=== PATIENT | female | born 1990 | race Caucasian/White ===

== ENCOUNTER 2018-08-06 06:19 | Inpatient (IN) | payer MEDICAID ==
[2018-08-06] MEDS ORDERED: LACTATED RINGER'S 1,000 ML IV (06:29)
[2018-08-06] MEDS ORDERED: OXYCODONE/ACETAMINOPHEN (5/325) TAB PO (06:30)
[2018-08-06] MEDS ORDERED: MISOPROSTOL 200 MCG TAB PR ×2 (06:30→08:30)
[2018-08-06] MEDS ORDERED: METHYLERGONOVINE 0.2 MG INJ IM ×2 (06:30→08:30)
[2018-08-06] MEDS ORDERED: CARBOPROST 250 MCG INJ IM ×2 (06:30→08:30)
[2018-08-06] MEDS ORDERED: OXYTOCIN 30 UNITS/LR 500 ML IV ×2 (06:30→08:30)
[2018-08-06] MEDS ORDERED: BUTORPHANOL 2 MG INJ IV (06:30)
[2018-08-06 06:46] LABS: ADD MAN DIFF? NO
[2018-08-06] MEDS ORDERED: LIDOCAINE 0.5% (SDV) 50 ML INJ (06:48)
[2018-08-06 06:50] LABS: WHITE BLOOD COUNT 11.2 10^3/ul (4.8-10.8)
[2018-08-06 06:50] LABS: BASOPHILS % 0.4 % (0.0-2.0); EOSINOPHILS # 0.2 10^3/ul (0.0-0.5); EOSINOPHILS % 1.3 % (0.0-7.0); HEMATOCRIT 42.3 % (37.0-47.0); HEMOGLOBIN 14.1 g/dl (12.0-16.0); LYMPHOCYTES % 26.4 % (15.0-51.0); MEAN CORPUSCULAR HEMOGLOBIN 29.6 pg (29.0-33.0); MEAN CORPUSCULAR HGB CONC 33.3 g/dl (32.0-37.0); MEAN CORPUSCULAR VOLUME 88.9 fl (82.0-101.0); MEAN PLATELET VOLUME 11.6 fl (7.4-10.4); MONOCYTE # 0.6 10^3/ul (0.3-0.9); MONOCYTES % 5.4 % (0.0-11.0); NEUTROPHIL # 7.4 10^3/ul (1.6-7.5); PLATELET COUNT 242 10^3/UL (140-415); RED BLOOD COUNT 4.76 10^6/ul (4.20-5.40); RED CELL DISTRIBUTION WIDTH 14.6 % (11.5-14.5)
[2018-08-06 07:09] LABS: INR 0.82; PROTIME 11.4 Sec (11.9-14.9); PT RATIO 0.9
[2018-08-06 07:10] LABS: PARTIAL THROMBOPLASTIN TIME 26.9 Sec (23.0-35.0)
[2018-08-06] MEDS: IBUPROFEN 600 MG TAB PO ×4 (07:35→23:48)
[2018-08-06] MEDS: OXYTOCIN 30 UNITS/LR 500 ML IV ×2 (07:36→07:39)
[2018-08-06] MEDS: LACTATED RINGER'S 1,000 ML IV* ×3 (07:41→16:29)
[2018-08-06] MEDS: LIDOCAINE 1% (MPF) 30 ML INJ INJ (07:42)
[2018-08-06 07:54] LABS: HEPATITIS B SURFACE ANTIGEN NEGATIVE (NEGATIVE)
[2018-08-06] MEDS ORDERED: HYDROCODONE/APAP (5/325) TAB PO (08:30)
[2018-08-06] MEDS ORDERED: ZOLPIDEM 5 MG TAB PO (08:30)
[2018-08-06] MEDS ORDERED: DIBUCAINE 1% 30 GM OINT TOP (08:30)
[2018-08-06] MEDS: AMPICILLIN 2 GM/NS (PMX) 100 ML IV (08:45)
[2018-08-06] MEDS: SENNA/DOCUSATE NA (8.6MG/50MG) TAB PO ×2 (09:00→21:53)
[2018-08-06] MEDS: MAGNESIUM HYDROXIDE 30ML CUP PO ×2 (09:00→21:53)
[2018-08-06] MEDS ORDERED: AMPICILLIN 1 GM/NS (PMX) 50 ML IV (10:30)
[2018-08-06] MEDS: LANOLIN 7 GM TUBE TOP (12:33)
[2018-08-06] MEDS: WITCH HAZEL/GLYCERIN PAD PR (12:34)
[2018-08-06] MEDS: BENZOCAINE 20% 56 ML SPRAY TOP (12:34)
[2018-08-06 15:01] LABS: RAPID PLASMA REAGIN NONREACTIVE (NR)
[2018-08-07] MEDS: LACTATED RINGER'S 1,000 ML IV* ×3 (00:29→15:04)
[2018-08-07] MEDS: IBUPROFEN 600 MG TAB PO (05:59)
[2018-08-07 07:09] LABS: ADD MAN DIFF? NO
[2018-08-07 07:14] LABS: WHITE BLOOD COUNT 10.4 10^3/ul (4.8-10.8)
[2018-08-07 07:14] LABS: BASOPHIL # 0.1 10^3/ul (0.0-0.1); BASOPHILS % 0.5 % (0.0-2.0); EOSINOPHILS # 0.1 10^3/ul (0.0-0.5); EOSINOPHILS % 1.3 % (0.0-7.0); HEMATOCRIT 38.2 % (37.0-47.0); HEMOGLOBIN 12.6 g/dl (12.0-16.0); LYMPHOCYTES # 2.5 10^3/ul (0.8-2.9); LYMPHOCYTES % 23.6 % (15.0-51.0); MEAN CORPUSCULAR HEMOGLOBIN 29.5 pg (29.0-33.0); MEAN CORPUSCULAR VOLUME 89.5 fl (82.0-101.0); MEAN PLATELET VOLUME 11.5 fl (7.4-10.4); MONOCYTE # 0.7 10^3/ul (0.3-0.9); MONOCYTES % 6.2 % (0.0-11.0); NEUTROPHIL # 7.1 10^3/ul (1.6-7.5); NEUTROPHILS % 67.7 % (39.0-77.0); PLATELET COUNT 241 10^3/UL (140-415); RED BLOOD COUNT 4.27 10^6/ul (4.20-5.40); RED CELL DISTRIBUTION WIDTH 14.7 % (11.5-14.5)
[2018-08-07] MEDS: SENNA/DOCUSATE NA (8.6MG/50MG) TAB PO ×2 (09:00→21:00)
[2018-08-07] MEDS: MAGNESIUM HYDROXIDE 30ML CUP PO ×2 (09:00→21:00)
[2018-08-07] MEDS: KETOROLAC 30 MG INJ IV (09:21)
[2018-08-07] MEDS ORDERED: MEPERIDINE 25 MG INJ IV (18:30)
[2018-08-07] MEDS ORDERED: FENTAnyl 50 MCG/ML VIAL IV ×3 (18:30)
[2018-08-07] MEDS ORDERED: EPHEDrine SULFATE 50 MG/5 ML SYG IV (18:30)
[2018-08-07] MEDS ORDERED: DIPHENHYDRAMINE 50 MG INJ IV (18:30)
[2018-08-07] MEDS ORDERED: HYDROmorphONE 1 MG/5 ML IV SYRINGE IV (18:30)
[2018-08-07] MEDS ORDERED: PROCHLORPERAZINE 10 MG INJ IV (18:30)
[2018-08-07] MEDS ORDERED: MIDAZOLAM 1 MG/ML 2 ML INJ (18:34)
[2018-08-07] MEDS ORDERED: FENTAnyl 50 MCG/ML VIAL (18:45)
[2018-08-07] MEDS: BUPIVACAINE 0.25%/EPI (MDV) 50 ML VIAL INJ (18:54)
[2018-08-07] MEDS ORDERED: CEFAZOLIN 1 GM INJ (18:58)
[2018-08-07] MEDS: HYDROmorphONE 1 MG/5 ML IV SYRINGE IV ×2 (19:50→20:03)
[2018-08-07] MEDS ORDERED: KETOROLAC 30 MG INJ IM (20:22)
[2018-08-07] MEDS: KETOROLAC 60 MG INJ IM (20:26)
[2018-08-07] MEDS: ONDANSETRON 4 MG INJ IV (20:38)
[2018-08-07] MEDS: BUTORPHANOL 2 MG INJ IM (21:05)
[2018-08-07] MEDS: LACTATED RINGER'S 1,000 ML IV (21:47)
[2018-08-07] MEDS: HYDROCODONE/APAP (5/325) TAB PO (22:20)
[2018-08-07] MEDS: CEPHALEXIN 500 MG CAP PO (23:32)
[2018-08-08] MEDS: IBUPROFEN 600 MG TAB PO ×3 (02:25→13:50)
[2018-08-08] MEDS: LACTATED RINGER'S 1,000 ML IV (05:27)
[2018-08-08] MEDS: CEPHALEXIN 500 MG CAP PO ×2 (05:51→11:44)
[2018-08-08] MEDS: DIPHTH/TET/ACEL PERTUSS (ADULT) 0.5 ML VIAL IM* (07:40)
[2018-08-08] MEDS: SENNA/DOCUSATE NA (8.6MG/50MG) TAB PO (09:39)
[2018-08-08] MEDS: VARICELLA VACCINE LIVE/PF 1,350 UNIT/0.5 ML ML SC* (09:39)
[2018-08-08] MEDS: MEASLES,MUMPS,RUBELLA VACCINE INJ SC* (09:39)
[2018-08-08] MEDS: MAGNESIUM HYDROXIDE 30ML CUP PO (09:39)
[2018-08-08] MEDS: BENZOCAINE 20% 56 ML SPRAY TOP (14:54)
[2018-08-10] MEDS ORDERED: IBUPROFEN 600 MG TAB PO (09:00)
== END 2018-08-08 15:50 | disposition home or self-care (01) | DRG 798 ==
LOC: OBT 06:19 → L-D 06:22 → OBT 06:24 → L-D 06:24 → PP1 08:25
PROVIDERS: Obstetrics & Gynecology
PROC: 0UB74ZZ Excision of Bilateral Fallopian Tubes, Percutaneous Endoscopic Approach (ICD-10-PCS; 2018-08-07 17:00)
PROC: 10E0XZZ Delivery of Products of Conception, External Approach (ICD-10-PCS; principal; 2018-08-07 18:33)
PROC: 0KQM0ZZ Repair Perineum Muscle, Open Approach (ICD-10-PCS; 2018-08-07 18:33)
DX: O70.1 Second degree perineal laceration during delivery (principal); Z37.0 Single live birth; Z3A.39 39 weeks gestation of pregnancy; Z30.2 Encounter for sterilization
CPT/HCPCS: 85025; 85610; 85730; 86592; 86850; 86900; 86901; 87340; 88302; 90715; 90716